=== PATIENT | male | born 2000 | race Caucasian/White ===

== ENCOUNTER 2019-03-19 16:16 | Emergency (ER) | payer MEDICAID ==
[2019-03-19] MEDS ORDERED: CYCLOBENZAPRINE 10 MG TABLET PO STA (16:31)
--- NOTE | 2019-03-19 16:34 | ED Physician Documentation ---
PD HPI UPPER EXT INJURY - Stated complaint Stated Complaint: R SHOULDER PX - Chief complaint Chief Complaint: Ext Problem - History obtained from History obtained from: Patient - History of Present Illness Location: Right (He has had right upper back pain for years that is worse in the last 4 days. He is been trying a family members Percocet for it which is minimally helpful but is made him constipated. He describes numbness in the right 2 fingers but denies neck pain. There was an injury a long time ago. He has an appoint with his primary care physician for this in the next couple of weeks.) Review of Systems Constitutional: reports: Reviewed and negative Nose: reports: Reviewed and negative Throat: reports: Reviewed and negative Cardiac: reports: Reviewed and negative Respiratory: reports: Reviewed and negative PD PAST MEDICAL HISTORY - Past Medical History Past Medical History: No Cardiovascular: None Respiratory: None Neuro: None Endocrine/Autoimmune: None GI: None : None HEENT: None Psych: Depression, Anxiety Musculoskeletal: None Derm: None - Past Surgical History Past Surgical History: No - Present Medications Home Medications: Ambulatory Orders Medication Instructions Recorded Confirmed Cyclobenzaprine [Flexeril] 10 mg PO TID PRN #20 tablet 03/19/19 Metoprolol Succinate 25 mg PO 03/19/19 Quetiapine Fumarate [Seroquel] 50 mg PO 03/19/19 busPIRone [Buspar] 5 mg PO BID 03/19/19 03/19/19 clonazePAM [Clonazepam] 1 mg PO 03/19/19 03/19/19 - Allergies Allergies/Adverse Reactions: Allergies Allergy/AdvReac Type Severity Reaction Status Date / Time No Known Drug Allergies Allergy Verified 03/19/19 16:20 - Social History Does the pt smoke?: No Smoking Status: Never smoker Does the pt drink ETOH?: Yes Does the pt have substance abuse?: No - Immunizations Immunizations are current?: Yes - POLST Patient has POLST: No PD ED PE NORMAL - Vitals Vital signs reviewed: Yes - General General: Alert and oriented X 3, No acute distress - HEENT HEENT: PERRL, EOMI - Neck Neck: Supple, no meningeal sign, No bony TTP - Cardiac Cardiac: RRR, No murmur - Respiratory Respiratory: No respiratory distress, Clear bilaterally - Abdomen Abdomen: Non tender - Back Back: Other (No midline spinal tenderness, he is tender over the parathoracic muscles on both sides, right greater than left. He has full range of motion of the shoulder. Normal gray tender strength, thumb extension, interossei strength, flexion and extension at the wrists on both sides and symmetric sensation throughout the hands on both sides.) - Neuro Neuro: Alert and oriented X 3, Normal speech Results - Vitals Vitals: Vital Signs - 24 hr 03/19/19 16:19 Temperature 36.8 C Heart Rate 76 Respiratory 20 Rate Blood Pressure 127/75 O2 Saturation 95 Oxygen O2 Source Room air Departure - Departure Disposition: 01 Home, Self Care Clinical Impression: Spasm of thoracic back muscle Condition: Good Record reviewed to determine appropriate education?: Yes Instructions: ED Spasm Back No Trauma Prescriptions: Cyclobenzaprine [Flexeril] 10 mg PO TID PRN #20 tablet PRN Reason: Spasms Comments: Follow-up with your doctor as scheduled. Return for new or worsening symptoms. Please note that taking someone else's narcotic pain medication is a federal offense.
[2019-03-19 16:48] VITALS: BP 129/111
== END 2019-03-19 16:40 | disposition home or self-care (01) ==
LOC: ED 16:16
DX: M62.830 Muscle spasm of back (principal); M54.6 Pain in thoracic spine; M25.511 Pain in right shoulder
CPT/HCPCS: 99283; A9270

== ENCOUNTER 2019-07-16 15:42 | Emergency (ER) | payer MEDICAID ==
[2019-07-16 15:51] VITALS: BP 125/77
[2019-07-16] MEDS ORDERED: IBUPROFEN 800 MG TABLET PO STA (16:36)
[2019-07-16] MEDS ORDERED: AMOX/CLAV 875 MG/125 MG TABLET PO STA (16:36)
--- NOTE | 2019-07-16 16:38 | ED Physician Documentation ---
History of Present Illness - Stated complaint Stated Complaint: R EAR PX/CANT HEAR - Chief complaint Chief Complaint: Heent - History obtained from History obtained from: Patient - History of Present Illness Timing: How many weeks ago (1) Pain level max: 8 Pain level now: 8 - Additonal information Additional information: R ear pain x 1 week. Patient states that he feels like there was an insect in his here so he has been scraping the inside of his ear with paper clips and jak pins. Review of Systems Constitutional: denies: Fever, Chills GI: denies: Vomiting PD PAST MEDICAL HISTORY - Past Medical History Cardiovascular: None Respiratory: None Neuro: None Endocrine/Autoimmune: None GI: None : None HEENT: None Psych: Depression, Anxiety Musculoskeletal: None Derm: None - Past Surgical History Past Surgical History: No - Present Medications Home Medications: Ambulatory Orders Medication Instructions Recorded Confirmed Cyclobenzaprine [Flexeril] 10 mg PO TID PRN #20 tablet 03/19/19 Metoprolol Succinate 25 mg PO 03/19/19 Quetiapine Fumarate [Seroquel] 50 mg PO 03/19/19 busPIRone [Buspar] 5 mg PO BID 03/19/19 03/19/19 clonazePAM [Clonazepam] 1 mg PO 03/19/19 03/19/19 Amox/Clav 875/125 [Augmentin] 1 each PO Q12H #20 tablet 07/16/19 Ibuprofen [Motrin] 800 mg PO Q8H PRN #30 tablet 07/16/19 Neomycin/Polymyx/Hc Otic Drops 4 drops OT TID 10 Days #1 bottle 07/16/19 [Cortisporin Ear Susp] - Allergies Allergies/Adverse Reactions: Allergies Allergy/AdvReac Type Severity Reaction Status Date / Time No Known Drug Allergies Allergy Verified 07/16/19 15:51 - Social History Does the pt smoke?: No Smoking Status: Never smoker Does the pt drink ETOH?: Yes Does the pt have substance abuse?: No - Immunizations Immunizations are current?: Yes - POLST Patient has POLST: No PD ED PE NORMAL - Vitals Vital signs reviewed: Yes - General General: Alert and oriented X 3, No acute distress - HEENT HEENT: PERRL, Moist mucous membranes, Other (Left ear is normal. Right ear reveals an erythematous ear canal with purulent drainage. Also an erythematous tympanic membrane with purulence behind the TM. No evidence of perforation. Left ear is normal) - Neck Neck: Supple, no meningeal sign - Cardiac Cardiac: RRR - Derm Derm: Warm and dry - Neuro Neuro: Alert and oriented X 3 Results - Vitals Vitals: Vital Signs - 24 hr 07/16/19 15:49 Temperature 36.4 C L Heart Rate 80 Respiratory 19 Rate Blood Pressure 125/77 O2 Saturation 100 Oxygen O2 Source Room air PD MEDICAL DECISION MAKING - ED course Complexity details: considered differential, d/w patient ED course: 19-year-old male with an otitis externa and otitis media of the right ear. Likely secondary to sticking foreign objects in the ear. We will have him follow-up with his doctor for further care. Will place on oral and otic antibiotics. Patient counseled regarding signs and symptoms for which I believe and urgent re-evaluation would be necessary. Patient with good understanding of and agreement to plan and is comfortable going home at this time This document was made in part using voice recognition software. While efforts are made to proofread this document, sound alike and grammatical errors may occur. Departure - Departure Disposition: Home, Self Care Clinical Impression: Otitis externa Qualifiers: Otitis externa type: unspecified type Chronicity: acute Laterality: right Qualified Code(s): H60.501 - Unspecified acute noninfective otitis externa, right ear Otitis media Qualifiers: Otitis media type: suppurative Chronicity: acute Laterality: right Recurrence: non-recurrent Spontaneous tympanic membrane rupture: without spontaneous rupture Qualified Code(s): H66.001 - Acute suppurative otitis media without spontaneous rupture of ear drum, right ear Condition: Good Instructions: ED Otitis Media Acute Adult, ED Otitis Externa Follow-Up: Angelia Herrera CHILD DEVELOPMENT ASSISTANT [Primary Care Provider] - Within 1 week Prescriptions: Amox/Clav 875/125 [Augmentin] 1 each PO Q12H #20 tablet Ibuprofen [Motrin] 800 mg PO Q8H PRN #30 tablet PRN Reason: PAIN &/OR FEVER Neomycin/Polymyx/Hc Otic Drops [Cortisporin Ear Susp] 4 drops OT TID 10 Days #1 bottle Comments: Use the medications as prescribed. Return if you worsen. Do not stick any foreign objects in your ear. Discharge Date/Time: 07/16/19 16:55
== END 2019-07-16 16:55 | disposition home or self-care (01) ==
LOC: ED 15:42
DX: H60.501 Unspecified acute noninfective otitis externa, right ear (principal); H66.001 Acute suppurative otitis media without spontaneous rupture of ear drum, right ear
CPT/HCPCS: 99283; 99284; A9270